=== PATIENT | female | born 1955 | race Asian ===

== ENCOUNTER 2020-05-02 11:27 | Emergency (ER) | payer BC, OTHER ==
[~2020-05-02] VITALS: Ht 152.4 cm; Wt 55.8 kg
[2020-05-02] MEDS ORDERED: levoFLOXacin 750MG 150 ML IV ONE (12:45)
[2020-05-02] MEDS ORDERED: SODIUM CHLORIDE 0.9% 1,000 ML IV ONE (12:45)
[2020-05-02] MEDS ORDERED: ACETAMINOPHEN 500 MG TAB PO ONE (14:45)
[2020-05-02 15:54] VITALS: BP 112/70
[2020-05-02] MEDS ORDERED: cefTRIAXone 1GM/50ML D5W 50 ML IV ONE (16:45)
== END 2020-05-02 16:52 | disposition home or self-care (01) ==
LOC: ER 11:27
DX: J06.9 Acute upper respiratory infection, unspecified (principal); Z20.828 Contact with and (suspected) exposure to other viral communicable diseases
CPT/HCPCS: 36415; 71045; 87070; 87426; 87804; 87880; 96365; 96366; 99284; J1956; J7030